=== PATIENT | male | born 1995 | race Caucasian/White ===

== ENCOUNTER 2021-07-19 14:42 | Emergency (ER) | payer MEDICAID ==
[~2021-07-19] VITALS: Ht 170.2 cm; Wt 63.5 kg
--- NOTE | 2021-07-19 14:43 | NUR ---
Pt is evaluated by Dr Ribeiro.
[2021-07-19] MEDS ORDERED: BACITRACIN ZINC OINT 15 GM TUBE TOP STA (14:44)
[2021-07-19] MEDS ORDERED: TDAP DIPH,PERTUSS,TET VAC/PF 0.5 ML DISP.SYRIN IM ONE ×2 (14:45→15:29)
[2021-07-19 15:22] LABS: *BILIRUBIN,URIN NEGATIVE (NEGATIVE); *BLOOD, URINE NEGATIVE (NEGATIVE); *CLARITY,URINE CLEAR (CLEAR); *COLOR,URINE YELLOW (YELLOW); *KETONES,URINE NEGATIVE (NEGATIVE); *UROBILINOGEN,URINE 0.2 E.U./dl (NORMAL); LEUKOCYTE ESTERASE ,URINE NEGATIVE (NEGATIVE); NITRITE, URINE NEGATIVE (NEGATIVE); UGLUCOSE NEGATIVE (NEGATIVE)
[2021-07-19] MEDS ORDERED: OLAN15TA3 PO (15:27)
[2021-07-19] MEDS ORDERED: DIPH25CA83 PO (15:27)
[2021-07-19] MEDS ORDERED: MIRT-121 PO (15:27)
[2021-07-19] MEDS ORDERED: OXCA300T4 PO ×2 (15:27)
[2021-07-19] MEDS ORDERED: NEOMY/BACITRA/POLYMYXIN B OINT UD PACKET TP ONE (15:28)
[2021-07-19 15:32] LABS: *AMPHETAMINE, URINE NEGATIVE (NEGATIVE); *CANNABINOID, URINE NEGATIVE (NEGATIVE); *COCCAINE, URINE NEGATIVE (NEGATIVE); *OPIATE, URINE NEGATIVE (NEGATIVE); *PHENCYCLIDINE SCREEN,URINE NEGATIVE (NEGATIVE)
[2021-07-19 15:48] LABS: HEMATOCRIT 41.9 % (36.7-47.1); MEAN CORPUSCULAR HEMOGLOBIN 28.8 uug (23.8-33.4); MEAN CORPUSCULAR VOLUME 83.8 fL (73.0-96.2); PLATELET COUNT (AUTO) 220 K/uL (152-348)
[2021-07-19 15:55] LABS: CARBON DIOXIDE 30 mmol/L (21-32); CHLORIDE 96 mmol/L (98-107); CREATININE 0.9 mg/dL (0.6-1.3); GLUCOSE 90 mg/dL (74-106); POTASSIUM 3.9 mmol/L (3.5-5.1); UREA NITROGEN, BLOOD 19 mg/dL (7-18)
[2021-07-19] MEDS ORDERED: BACITRACIN ZINC OINT 15 GM TUBE ONE (16:00)
[2021-07-19 16:01] LABS: ALANINE AMINOTRANSFERASE 66 U/L (16-63); ALKALINE PHOSPHATASE 96 U/L (50-136); ASPARTATE AMINOTRANSFERASE 22 U/L (15-37); BILIRUBIN,DIRECT 0.1 mg/dL (0.0-0.2); BILIRUBIN,TOTAL 0.2 mg/dL (0.2-1.0)
[2021-07-19 16:07] LABS: ACETAMINOPHEN < 2.0 ug/mL (10-30); ETHANOL < 3 MG/DL (0-0)
--- NOTE | 2021-07-19 18:25 | NUR ---
Dinner tray provided, Pt ate 100% of tray.
[2021-07-19] MEDS ORDERED: OLANZAPINE 5 MG TABLET PO ONE (20:00)
--- NOTE | 2021-07-20 01:30 | NUR ---
Patient in bed, sleeping without any signs of acute distress. Will continue to monitor.
[2021-07-20] MEDS ORDERED: OLANZAPINE 5 MG TABLET ONE (03:27)
[2021-07-20] MEDS ORDERED: OLANZAPINE 5 MG TABLET PO ONE (03:30)
--- NOTE | 2021-07-20 03:35 | NUR ---
Cinthya, crisis team evaluated patient. Patient will need to be transferred for psychiatric inpatient admission. Clinicals have been faxed, will follow up for updates
--- NOTE | 2021-07-20 04:24 | NUR ---
Patient ambulated with steady gait to the bathroom in direct line of sight of nursing.
--- NOTE | 2021-07-20 05:30 | NUR ---
Patient in bed watching television, denies any acute distress at this time. Remains calm, cooperative. Will continue to monitor. Security at bedside within direct line of sight of patient.
--- NOTE | 2021-07-20 07:37 | NUR ---
PT IS IN ROOM #2B. SITTER AT THE BEDSIDE. NO S/S OF ACUTE DISTRESS AT THIS TIME. CONTINUE TO MONITOR THE PT.
--- NOTE | 2021-07-20 10:47 | NUR ---
PT WAS EVALUATED BY CRISIS ORIENTAL MEDICINE PRACTITIONER EMERSON. PT's 51/50 HOLD WAS REMOVED BY CRISIS ORIENTAL MEDICINE PRACTITIONER EMERSON. DR WYLIE RE-EVALUATED THE PT. PT WAS D/C'd TO HOME. D/C INSTRUCTIONS GIVEN TO THE PT BY DR WYLIE AND BY COCIAL WORKER HANNA. PT's GAIT IS STABLE. NO S/S OF DISTRESS AT THE TIME OF DISCHARGE. PT DENIES SUICIDAL IDIATION, NO SOB, NO N/V, PT DENIES PAIN.
[2021-07-20 10:56] VITALS: BP 132/77
--- NOTE | 2021-07-20 14:44 | NUR ---
Clinical Social Work Note AMANDA faxed patient's clinicals [facility] ([phone]), [facility] ([phone]), and [facility] ([phone]) for referral for psychiatric admission. Patient is a 25 year old Male who is alert and oriented x4. Patient presents with a hopeful mood and congruent affect. Patient stated that he is going to return to [facility] to continue outpatient services. AMANDA assisted patient in contacting his aunt Alyse Salinas ([phone]) to inform her of his discharge plan. SW provided patient with outpatient services. The following referrals were given to patient: [facility] [address] [facility], 2nd [place] [address] , [facility], [facility]. [address] [place] [address] , and [facility] [address] [place] [address] .
== END 2021-07-20 11:00 | disposition home or self-care (01) ==
LOC: ER 14:42
DX: R45.851 Suicidal ideations (principal); F15.10 Other stimulant abuse, uncomplicated; Z20.822 Contact with and (suspected) exposure to COVID-19; S50.812A Abrasion of left forearm, initial encounter; Y28.9XXA Contact with unspecified sharp object, undetermined intent, initial encounter; Y92.89 Other specified places as the place of occurrence of the external cause; Z91.52 Personal history of nonsuicidal self-harm; F20.9 Schizophrenia, unspecified; Z86.16 Personal history of COVID-19; Z82.49 Family history of ischemic heart disease and other diseases of the circulatory system
CPT/HCPCS: 36415; 80048; 80076; 80299; 80307; 80320; 81003; 85025; 87426; 90471; 90715; 99285; U0003; A4663; G0480